=== PATIENT | female | born 1980 | race Caucasian/White ===

== ENCOUNTER 2018-09-05 19:08 | Emergency (ER) | payer OTHER ==
[2018-09-05 19:47] VITALS: BP 140/84; PULSE 80; TEMP 99.2; BMI 30.2
--- NOTE | 2018-09-05 19:47 | PDOC ---
Rapid Medical Evaluation Chief Complaint: Shortness of Breath Time Seen by Provider: 09/05/18 19:43 Medical Evaluation: Allergies Allergy/AdvReac Type Severity Reaction Status Date / Time latex Allergy Verified 05/10/15 21:02 09/05/18 19:46 Patient c/o: chest pain, sob, mother PE Patient on brief exam: vss Patient ordered for: labs, ua, ekg The patient will proceed to the ED Discharge Disposition - Diagnosis Chest pain - Referrals - Patient Instructions - Post Discharge Activity
--- NOTE | 2018-09-05 20:31 | PDOC ---
History of Present Illness - General Chief Complaint: Shortness of Breath Stated Complaint: CHEST PAIN Time Seen by Provider: 09/05/18 19:43 History Source: Patient - History of Present Illness Initial Comments: 09/05/18 20:45 37 year old female with one month history of right sided pleuritic chest pain to the right chest now radiating to the back. patient was seen in urgent care tpday send for evaluation for pleuritic chest pain and elevated d-dimer r/o PE. denies NVD, abdominal pain, urinary symptoms. denies OCP use, prolonged sitting and recent travel. Mother from DVT/ PE Past History - Past Medical History Allergies/Adverse Reactions: Allergies Allergy/AdvReac Type Severity Reaction Status Date / Time latex Allergy Verified 09/05/18 19:47 Home Medications: Ambulatory Orders NK [No Known Home Medication] 09/05/18 - Surgical History Cholecystectomy: Yes - Immunization History Immunization Up to Date: Yes - Suicide/Smoking/Psychosocial Hx Smoking History: Never smoked Have you smoked in the past 12 months: No Information on smoking cessation initiated: No Hx Alcohol Use: No Drug/Substance Use Hx: No Substance Use Type: None Review of Systems - Review of Systems Able to Perform ROS?: Yes Is the patient limited Bangladeshi proficient: No Constitutional: No: Symptoms Reported, See HPI, Chills, Diaphoresis, Fever, Loss of Appetite, Malaise, Night Sweats, Weakness, Weight Stable, Unintentional Wgt. Loss, Unexplained wgt Loss, Other Respiratory: Yes: Shortness of Breath. No: Symptoms reported, See HPI, Cough, Orthopnea, SOB with Exertion, SOB at Rest, Stridor, Wheezing, Productive cough, Hemoptysis, Other Cardiac (ROS): Yes: Chest Pain. No: Symptoms Reported, See HPI, Edema, Irregular Heart Rate, Lightheadedness, Palpitations, Syncope, Chest Tightness, Other ABD/GI: No: Symptoms Reported, See HPI, Abdominal Distended, Abd. Pain w/ defecation, Blood Streaked Bowels, Constipated, Diarrhea, Difficulty Swallowing , Nausea, Poor Appetite, Poor Fluid Intake, Rectal Bleeding, Vomiting, Indigestion, Abdominal cramping, Tarry Stools, Other : No: Symptoms Reported, See HPI, Burning, Dysuria, Discharge, Frequency, Flank Pain, Hematuria, Incontinence, Pain, Urgency, Testicular Mass, Testicular Swelling, Lesions, Testicular Pain, Other Musculoskeletal: No: Symptoms Reported, See HPI, Back Pain, Gout, Joint Pain, Joint Swelling, Muscle Pain, Muscle Weakness, Neck Pain, Joint Stiffness, Other *Physical Exam - Vital Signs Last Vital Signs Temp Pulse Resp BP Pulse Ox 99.2 F 80 16 140/84 97 09/05/18 19:44 09/05/18 19:44 09/05/18 19:44 09/05/18 19:44 09/05/18 19:44 - Physical Exam General Appearance: Yes: Appropriately Dressed Respiratory/Chest: positive: Lungs Clear, Normal Breath Sounds, Other (+ upper back tenderness). negative: Chest Tender Cardiovascular: positive: Regular Rhythm, Regular Rate Gastrointestinal/Abdominal: positive: Normal Bowel Sounds, Soft. negative: Tender Musculoskeletal: positive: Normal Inspection Extremity: positive: Normal Capillary Refill, Normal Inspection, Normal Range of Motion Integumentary: positive: Normal Color, Dry, Warm Neurologic: positive: Fully Oriented, Alert, Normal Mood/Affect Moderate Sedation - Procedure Monitoring Vital Signs: Procedure Monitoring Vital Signs Temperature 99.2 F 09/05/18 19:44 Pulse Rate 80 09/05/18 19:44 Respiratory Rate 16 09/05/18 19:44 Blood Pressure 140/84 09/05/18 19:44 O2 Sat by Pulse Oximetry (%) 97 09/05/18 19:44 ED Treatment Course - LABORATORY CBC & Chemistry Diagram: 09/05/18 20:22 09/05/18 20:22 Medical Decision Making - Medical Decision Making 09/05/18 21:14 A: pleuritic chest pain *DC/Admit/Observation/Transfer Diagnosis at time of Disposition: Chest pain Qualifiers: Chest pain type: chest pain on breathing Qualified Code(s): R07.1 - Chest pain on breathing - Discharge Dispostion Disposition: HOME - Referrals - Patient Instructions Printed Discharge Instructions: DI for Chest Pain Additional Instructions: please follow up with your doctor as soon as possible. Additional Instructions: * Please call your personal physician to report your Emergency Department visit and to report your progress, if any. * If there is no improvement in symptoms in 2 days call your physician. * Return to the Emergency Department for any worsening symptoms. - Post Discharge Activity Forms/Work/School Notes: Back to Work
[2018-09-05 20:39] LABS: EOS % 1.5 % (0-4.5); HEMATOCRIT 41.7 % (32.4-45.2); HEMOGLOBIN 14.6 GM/dL (10.7-15.3); LYMPH % 25.8 % (8-40); MCHC 35.1 g/dl (32.0-36.0); MEAN CELL VOLUME 85.7 fl (80-96); MEAN PLT VOLUME 7.6 fl (7.5-11.1); NEUT % 64.7 % (42.8-82.8); PLATELET COUNT 327 K/MM3 (134-434); RBC 4.87 M/mm3 (3.60-5.2); RDW 13.4 % (11.6-15.6); WHITE BLOOD COUNT 11.1 K/mm3 (4.0-10.0)
[2018-09-05 20:49] LABS: URINE APPEARANCE SLCLOUDY; URINE BILIRUBIN NEGATIVE (<2.0 mg/dL); URINE COLOR YELLOW; URINE GLUCOSE (UA) NEGATIVE (NEGATIVE); URINE KETONE NEGATIVE (NEGATIVE); URINE LEUK ESTERASE NEGATIVE (NEGATIVE); URINE NITRITE NEGATIVE (NEGATIVE); URINE PROTEIN NEGATIVE (NEGATIVE); URINE UROBILINOGEN NEGATIVE mg/dL (0.2-1.0)
[2018-09-05 21:08] LABS: HCG,QUALITATIVE URINE Negative
[2018-09-05 21:12] LABS: ALK PHOS 81 U/L (45-117); ANION GAP 9 MMOL/L (8-16); BILIRUBIN,TOTAL 0.3 mg/dL (0.2-1); BLOOD UREA NITROGEN 12 mg/dL (7-18); CALCIUM 9.1 mg/dL (8.5-10.1); CHLORIDE 107 mmol/L (98-107); CO2 24 mmol/L (21-32); CREATININE 1.3 mg/dL (0.55-1.3); GLUCOSE,RANDOM 80 mg/dL (74-106); SGOT/AST 18 U/L (15-37); SGPT/ALT 33 U/L (13-61); SODIUM 140 mmol/L (136-145); TOT PROT 8.2 g/dl (6.4-8.2)
[2018-09-05] MEDS ORDERED: SODIUM CHLORIDE 0.9% 500 ML INFUS.BAG IV ONE (21:47)
--- NOTE | 2018-09-06 11:45 | EKG ---
Test Reason : Blood Pressure : / mmHG Vent. Rate : 080 BPM Atrial Rate : 080 BPM P-R Int : 160 ms QRS Dur : 076 ms QT Int : 384 ms P-R-T Axes : 059 064 052 degrees QTc Int : 442 ms NORMAL SINUS RHYTHM NORMAL ECG NO PREVIOUS ECGS AVAILABLE Confirmed by KELIN JEREZ, GINNY ([id number]) on 09/06/2018 11:45:35 AM Referred By: MISA Confirmed By:GINNY NEVILLE MD
== END 2018-09-05 23:13 | disposition home or self-care (01) ==
LOC: JER 19:08
DX: R07.1 Chest pain on breathing (principal)
CPT/HCPCS: 36415; 71275-TC; 80053; 81003; 84703; 85025; 85379; 93005; 93010; 99283-25

== ENCOUNTER 2023-10-18 18:19 | Emergency (ER) | payer OTHER ==
[2023-10-18 18:30] VITALS: BP 152/98; PULSE 86; RESP 17; TEMP 97.5; BMI 31.2
[2023-10-18] MEDS ORDERED: KETOROLAC TROMETHAMINE 30 MG/1 ML VIAL IM ONE (20:49)
[2023-10-18] MEDS ORDERED: ACETAMINOPHEN 500 MG TABLET (FP) PO ONE (20:49)
[2023-10-18] MEDS ORDERED: KETOROLAC TROMETHAMINE 30 MG/1 ML VIAL ONE (21:01)
[2023-10-18] MEDS ORDERED: ACETAMINOPHEN 500 MG TABLET (FP) ONE (21:01)
== END 2023-10-18 22:47 | disposition home or self-care (01) ==
LOC: JERFT 18:19
PROC: 3E0233Z Introduction of Anti-inflammatory into Muscle, Percutaneous Approach (ICD-10-PCS; principal; 2023-10-18)
DX: M79.661 Pain in right lower leg (principal); M79.662 Pain in left lower leg
CPT/HCPCS: 73590-TC-LT-FY; 73590-TC-RT-FY; 93970-TC; 99284-25